=== PATIENT | female | born 1945 | race Caucasian/White ===

== ENCOUNTER 2024-04-03 07:32 | Day surgery (SDC) | payer OTHER ==
[~2024-04-03] VITALS: Ht 152.4 cm; Wt 95.3 kg
[~2024-04-03 07:32] MED LIST: ALBU90OI INH; ASPI81CH PO; CHOL10002 PO; CYAN500 PO; FISH1000 PO; LATA.005SO BOTHEYES; MULTIVITAMIN PO; OMEP20ER PO
[2024-04-03] MEDS ORDERED: LATA.005SO (07:55)
[2024-04-03] MEDS ORDERED: Lactated Ringer's 1,000 ML IV ONE (08:15)
[2024-04-03] MEDS ORDERED: propofoL 50 ML IV ONE (08:26)
[2024-04-03] MEDS ORDERED: Lidocaine HCl 1% 30 ML SDV ONE (08:27)
[2024-04-03 09:28] VITALS: BP 117/66
== END 2024-04-03 09:26 | disposition home or self-care (01) ==
LOC: ORSCSDS 07:32
PROVIDERS: Surgery
PROC: 0DJD8ZZ Inspection of Lower Intestinal Tract, Via Natural or Artificial Opening Endoscopic (ICD-10-PCS; principal; 2024-04-03 08:45)
DX: Z12.11 Encounter for screening for malignant neoplasm of colon (principal); Z85.048 Personal history of other malignant neoplasm of rectum, rectosigmoid junction, and anus; Z86.0100 Personal history of colon polyps, unspecified; I10 Essential (primary) hypertension; E78.5 Hyperlipidemia, unspecified; K21.9 Gastro-esophageal reflux disease without esophagitis; R00.1 Bradycardia, unspecified; Z98.84 Bariatric surgery status; E66.9 Obesity, unspecified; Z68.41 Body mass index [BMI] 40.0-44.9, adult; Z79.899 Other long term (current) drug therapy
CPT/HCPCS: J2704; J7120